=== PATIENT | female | born 1995 | race Two or more races ===

== ENCOUNTER 2024-05-11 15:08 | Emergency (ER) | payer OTHER ==
[~2024-05-11] VITALS: Ht 160 cm; Wt 56.7 kg
[2024-05-11] MEDS ORDERED: ACETAMINOPHEN 500 MG GEL..CAP PO STA (17:21)
[2024-05-11 17:42] LABS: HEMATOCRIT 41.3 % (36.0-45.00); HEMOGLOBIN 14.2 g/dL (12.0-15.00); MEAN CELL VOLUME 96.5 fL (80.00-100.00); MEAN CORPUSCULAR HEMOGLOBIN 33.1 pg (27.00-32.0); MEAN CORPUSCULAR HGB CONC 34.3 g/dl (32.0-36.0); PLATELET COUNT 278 K/uL (150-450); RED BLOOD COUNT 4.27 M/uL (4.00-6.00); RED CELL DISTRIBUTION WIDTH 13.2 % (11.5-14.5)
[2024-05-11 18:04] LABS: URINE APPEARANCE Clear; URINE BILIRRUBIN Negative (NEGATIVE); URINE BLOOD Large; URINE COLOR Yellow; URINE GLUCOSE Negative (NEGATIVE); URINE KETONE Negative (NEGATIVE); URINE LEUKOCYTE Moderate; URINE NITRATE Negative; URINE PROTEIN Negative (NEGATIVE); URINE UROBILINOGEN 0.2 E.U./dl
[2024-05-11 18:07] LABS: URINE BACTERIA 175.1 uL (0.0-1933); URINE EPITHELIAL CELLS 7.4 uL (0.0-38.8); URINE RBC 302.7 uL (0.0-20.8); URINE WBC 825.1 uL (0.0-23.2)
[2024-05-11] MEDS ORDERED: CIPRO500 MG PO (18:22)
[2024-05-11] MEDS ORDERED: PYRIDIUM200 MG PO (18:22)
== END 2024-05-11 20:29 | disposition home or self-care (01) ==
LOC: ER 15:09
PROVIDERS: General Practice
DX: N39.0 Urinary tract infection, site not specified (principal)